=== PATIENT | female | born 1945 | race Caucasian/White ===

== ENCOUNTER → 2017-04-24 | Outpatient (CLI) | payer OTHER, MEDICARE ==
[~2017-04-24] MED LIST: AMLODIPINE BESYL5 MG PO; ASPIR 8181 M1 PO; CALTRATE 600 +1 EAC1 PO; CENTRUM SILVER1 EAC3 PO; DEXILANT60 MG PO; JANUVIA25 M1 PO; SIMVASTATIN20 MG PO
== END | disposition home or self-care (01) ==
DX: M25.562 Pain in left knee (principal); M25.662 Stiffness of left knee, not elsewhere classified; R26.2 Difficulty in walking, not elsewhere classified; M62.81 Muscle weakness (generalized); M17.12 Unilateral primary osteoarthritis, left knee; Z74.1 Need for assistance with personal care
CPT/HCPCS: 97161 GP; 97165 GO; 97530 GP; 97535 GO; G8978 GP; G8979 GP; G8980 GP; G8987 GO; G8988 GO; G8989 GO

== ENCOUNTER 2017-05-27 22:02 | Inpatient (IN) | payer OTHER, MEDICARE ==
[~2017-05-27] VITALS: Ht 162.6 cm; Wt 80.8 kg
[~2017-05-27 22:02] MED LIST changes: +ASPIRIN81 M2 PO; +IRON325 M1 PO; +PROTONIX40 MG PO
[2017-05-28 06:02] VITALS: BP 127/59
[2017-05-28 11:04] VITALS: BP 147/67
[2017-05-28 13:00] VITALS: BP 122/58
[2017-05-28 15:15] VITALS: BP 126/60
[2017-05-28 17:51] VITALS: BP 135/60
[2017-05-28 20:11] VITALS: BP 170/72
[2017-05-29 00:26] VITALS: BP 146/68
[2017-05-29 04:25] VITALS: BP 140/63
[2017-05-29 06:06] LABS: HEMATOCRIT 39.3 % (36.0-46.0); MCV 82.9 FL (83-99)
[2017-05-29 06:18] LABS: HEMOGLOBIN 12.4 G/DL (11.9-15.5)
[2017-05-29 06:34] LABS: CHLORIDE 103 MEQ/L (99-109); CREATININE 0.8 MG/DL (0.6-1.3); GFR ESTIMATE (CALCULATED) > 59 mL/min/; GLUCOSE 167 mg/dL (70-99); POTASSIUM 3.8 MEQ/L (3.7-5.4); SODIUM 138 MEQ/L (136-147); UREA NITROGEN (BUN) 10 mg/dL (9-23)
[2017-05-29 07:37] VITALS: BP 118/56
[2017-05-29 11:52] VITALS: BP 136/63
[2017-05-29 15:44] VITALS: BP 116/61
[2017-05-29] MEDS ORDERED: ENDOCET 5-3251 EACH PO (16:47)
[2017-05-29] MEDS ORDERED: ELIQUIS2.5 MG PO (16:47)
[2017-05-29 20:26] VITALS: BP 154/68
[2017-05-30] VITALS (8 sets, daily range): BP systolic 128–163; BP diastolic 60–76
[2017-05-30 06:01] LABS: HEMATOCRIT 34.6 % (36.0-46.0)
[2017-05-31 03:46] VITALS: BP 137/83
[2017-05-31] MEDS ORDERED: TRAMADOL HCL50 MG PO (07:51)
[2017-05-31 08:21] VITALS: BP 137/63
[2017-05-31 11:20] VITALS: BP 141/88
== END 2017-05-31 12:47 | DRG 470 ==
LOC: ENRESERV 22:02 → 3WEST 05-28 05:26 → 2SOUTH 05-28 05:26 → 3WEST 05-28 10:45 → 2SOUTH 05-28 12:53 → 3WEST 05-31 10:57 → ENRESERV 05-31 11:01 → 3WEST 05-31 12:47
PROVIDERS: Orthopaedic Surgery
PROC: 0SRD0J9 Replacement of Left Knee Joint with Synthetic Substitute, Cemented, Open Approach (ICD-10-PCS; principal; 2017-05-28)
DX: M17.12 Unilateral primary osteoarthritis, left knee (principal); I10 Essential (primary) hypertension; E11.9 Type 2 diabetes mellitus without complications; E78.00 Pure hypercholesterolemia, unspecified; Z68.30 Body mass index [BMI] 30.0-30.9, adult; Z90.710 Acquired absence of both cervix and uterus
CPT/HCPCS: 80048; 82948; 85014; 85018; C1713; J0690; J1815; J1885; J2250; J2405; J3010; J7050; J7120; Q0175